=== PATIENT | male | born 1990 | race Caucasian/White ===

== ENCOUNTER 2019-09-29 17:20 | Emergency (ER) | payer SELFPAY ==
[~2019-09-29] VITALS: Ht 190.5 cm; Wt 81.6 kg
[~2019-09-29 17:20] MED LIST: BACTRIM DS 8001 TA1 PO; BACTROBAN CREAM15 GM T; CLEOCIN150 MG PO; DOXYCYCLINE MO100 MG PO; SEPTRA DS 800 M1 TAB PO; VICODIN ES 7501 TAB PO
[2019-09-29 17:56] LABS: BILIRUBIN 1+ (NEGATIVE); BLOOD 3+ (NEGATIVE); CLARITY CLOUDY (CLEAR); COLOR YELLOW (YELLOW); GLUCOSE NEGATIVE (NEGATIVE); KETONE 1+ (NEGATIVE); LEUKO ESTERASE TRACE (NEGATIVE); NITRITE NEGATIVE (NEGATIVE); UROBILINOGEN 0.2 E.U./dl (0.2-1.0)
[2019-09-29 17:57] LABS: BACTERIA 1+; MUCOUS 1+; RBC TNTC rbc/hpf (0-2)
[2019-09-29 20:32] LABS: BASO % 0.3 % (0.0-1.0); EOS # 0.1 10*3/uL (0.0-0.4); EOS % 0.8 % (1.0-4.0); HEMATOCRIT 44.7 % (42.0-52.0); HEMOGLOBIN 14.9 g/dl (14.0-18.0); LYMPH # 1.1 10*3/uL (1.3-4.4); LYMPH % 11.9 % (27.0-41.0); MEAN CELL VOLUME 91.8 fl (80.0-94.0); MEAN CORPUSCULAR HGB 30.6 pg (27.0-31.0); MEAN CORPUSCULAR HGB CONC 33.3 g/dl (33.0-37.0); MEAN PLATELET VOLUME 9.5 fl (9.6-12.3); MONO # 0.8 10*3/uL (0.1-1.0); MONO % 9.2 % (3.0-9.0); NEUT % 77.6 % (47.0-73.0); PLATELET COUNT AUTOMATED 202 10*3/uL (130-400); RED BLOOD COUNT 4.87 10*6/uL (4.50-5.90); RED CELL DISTRI WIDTH 12.4 % (0-14.5)
[2019-09-29 20:48] LABS: ALBUMIN 3.9 gm/dl (3.1-4.5); ALKALINE PHOSPHATASE 62 U/L (45-117); BUN 15 mg/dl (7-24); CHLORIDE 107 mmol/L (98-107); CREATININE 1.26 mg/dL (0.70-1.30); POTASSIUM 4.1 mmol/L (3.5-5.1); SGOT/AST 11 IU/L (3-35); SGPT/ALT 22 U/L (12-78); SODIUM 140 mmol/L (136-145); TOTAL PROTEIN 6.6 gm/dL (6.4-8.2)
[2019-09-29] MEDS ORDERED: FLOMAX0.4 MG PO (20:53)
[2019-09-29] MEDS ORDERED: CIPRO500 MG PO (20:53)
[2019-09-29] MEDS ORDERED: ZOFRAN4 MG PO (20:53)
[2019-09-29] MEDS ORDERED: Motrin,Rufen800 MG PO (20:53)
== END 2019-09-29 21:48 | disposition home or self-care (01) ==
LOC: ED 17:20
PROVIDERS: Physician Assistant
DX: N39.0 Urinary tract infection, site not specified (principal); N13.2 Hydronephrosis with renal and ureteral calculous obstruction; Z88.1 Allergy status to other antibiotic agents

== ENCOUNTER 2021-03-09 14:22 | Emergency (ER) | payer SELFPAY ==
[~2021-03-09] VITALS: Ht 190.5 cm; Wt 77.1 kg
[~2021-03-09 14:22] MED LIST changes: +CIPRO500 MG PO; +FLOMAX0.4 MG PO; +Motrin,Rufen800 MG PO; +ZOFRAN4 MG PO
[2021-03-09] MEDS ORDERED: PREDNISONE10 MG PO (14:44)
== END 2021-03-09 14:48 | disposition home or self-care (01) ==
LOC: ED 14:22
DX: L23.7 Allergic contact dermatitis due to plants, except food (principal); Z88.1 Allergy status to other antibiotic agents; Z79.2 Long term (current) use of antibiotics; Z79.899 Other long term (current) drug therapy

== ENCOUNTER 2024-05-28 20:38 | Emergency (ER) | payer SELFPAY ==
[~2024-05-28] VITALS: Ht 190.5 cm; Wt 81.6 kg
[~2024-05-28 20:38] MED LIST changes: +PREDNISONE10 MG PO
[2024-05-28] MEDS ORDERED: MELOXICAM15 MG PO (20:58)
[2024-05-28] MEDS ORDERED: CLINDAMYCIN HC300 MG PO (20:58)
[2024-05-28] MEDS ORDERED: CLINDAMYCIN HCL 300 MG CAPSULE PO ONE (21:00)
== END 2024-05-28 21:31 | disposition home or self-care (01) ==
LOC: ED 20:38
DX: K04.7 Periapical abscess without sinus (principal); K02.9 Dental caries, unspecified; Z87.442 Personal history of urinary calculi; Z88.1 Allergy status to other antibiotic agents; Z88.8 Allergy status to other drugs, medicaments and biological substances